=== PATIENT | female | born 1960 | race Caucasian/White ===

== ENCOUNTER → 2023-08-06 10:47 | Outpatient (REF) | payer OTHER, SELFPAY ==
[2023-08-06 12:13] LABS: % Basophils 0.6 % (0-2); % Eosinophils 1.5 % (0-6); % Immature Granulocytes 0.6 % (0-0.5); % Lymphocytes 23.1 % (20.5-51.1); % Monocytes 7.4 % (1.7-9.3); % Neutrophils 66.8 % (42.2-75.2); Absolute Basophils 0.1 10^3/uL (0-0.2); Absolute Eosinophils 0.1 10^3/uL (0-0.7); Absolute Immature Granulocytes 0.1 10^3/uL (0-0.05); Absolute Monocytes 0.7 10^3/uL (0.1-0.6); Absolute Neutrophils 5.9 10^3/uL (1.4-6.5); Hematocrit 44.1 % (37.0-47.0); Hemoglobin 14.6 g/dL (12.0-16.0); Mean Corp Hgb Conc. 33.1 g/dL (33.0-37.0); Mean Corpuscular Hgb 29.4 pg (27.0-31.0); Mean Corpuscular Volume 88.7 fL (81.0-99.0); Mean Platelet Volume 9.9 fL (7.4-10.4); Nucleated Red Blood Cells % 0 %; Platelet Count 374 10^3/uL (130-400); Red Blood Cell Count 4.97 10^6/uL (4.20-5.40); Red Cell Dist. Width 12.8 % (11.5-14.5); White Blood Cell Count 8.8 10^3/uL (4.8-10.8)
[2023-08-06 12:53] LABS: ALT (SGPT) 48 U/L (0-35); AST (SGOT) 41 U/L (14-36); Albumin 4.8 g/dl (3.5-5.0); Alkaline Phosphatase 67 U/L (38-126); Blood Urea Nitrogen 21 mg/dl (7-17); Calcium 10.5 mg/dl (8.4-10.2); Carbon Dioxide 31 mmol/L (22-30); Chloride 97 mmol/L (98-107); Glucose 96 mg/dl (70-99); HDL Cholesterol 68 mg/dl; LDL Cholesterol, Calculated 174 mg/dl; Potassium 3.4 mmol/L (3.5-5.1); Sodium 140 mmol/L (135-145); Total Cholesterol 273 mg/dl (50-199); Total Protein 8.1 g/dl (6.3-8.2); Triglyceride 156 mg/dl (10-149); Very Low Density Lipoprotein 31 mg/dl (0-30); eGFR 56.81
[2023-08-06 13:08] LABS: TSH 1.33 uIU/ml (0.47-4.68)
[2023-08-06 14:33] LABS: Glycohemoglobin (HgbA1c) 5.5 % (4.0-5.6)
[2023-08-06 15:57] LABS: Lyme Antibody Screen, EIA Negative (Negative)
== END ==
LOC: REG 10:47
PROVIDERS: ATTENDING PHYSICIAN Internal Medicine
DX: Z00.00 Encounter for general adult medical examination without abnormal findings (principal); M25.50 Pain in unspecified joint
CPT/HCPCS: 36415; 80053; 80061; 83036; 84443; 85025; 86618

== ENCOUNTER 2023-11-25 18:12 | Emergency (ER) | payer OTHER, SELFPAY ==
[2023-11-25 18:14] VITALS: BP 184/120
[2023-11-25 18:35] LABS: % Basophils 0.5 % (0-2); % Eosinophils 1.1 % (0-6); % Immature Granulocytes 0.5 % (0-0.5); % Lymphocytes 19.6 % (20.5-51.1); % Monocytes 5.5 % (1.7-9.3); % Neutrophils 72.8 % (42.2-75.2); Absolute Basophils 0.1 10^3/uL (0-0.2); Absolute Eosinophils 0.2 10^3/uL (0-0.7); Absolute Immature Granulocytes 0.1 10^3/uL (0-0.05); Absolute Lymphocytes 2.6 10^3/uL (1.2-3.4); Absolute Monocytes 0.7 10^3/uL (0.1-0.6); Absolute Neutrophils 9.6 10^3/uL (1.4-6.5); Hemoglobin 14.1 g/dL (12.0-16.0); Mean Corp Hgb Conc. 34.4 g/dL (33.0-37.0); Mean Corpuscular Hgb 29.1 pg (27.0-31.0); Mean Corpuscular Volume 84.7 fL (81.0-99.0); Mean Platelet Volume 9.6 fL (7.4-10.4); Nucleated Red Blood Cells % 0 %; Platelet Count 335 10^3/uL (130-400); Red Blood Cell Count 4.84 10^6/uL (4.20-5.40); Red Cell Dist. Width 12.9 % (11.5-14.5); White Blood Cell Count 13.2 10^3/uL (4.8-10.8)
[2023-11-25 18:44] LABS: Urine Albumin Trace (Neg - Trace); Urine Bilirubin Negative (Negative); Urine Character Slightly Cloudy (Clear); Urine Color Yellow; Urine Glucose Negative (Negative); Urine Ketone Negative (Negative); Urine Leukocyte 2+ (Negative); Urine Nitrite Negative (Negative); Urine Occult Blood 4+ (Negative); Urine Urobilinogen Negative (Neg - 1+)
[2023-11-25 18:51] LABS: ALT (SGPT) 41 U/L (0-35); AST (SGOT) 35 U/L (14-36); Albumin 4.8 g/dl (3.5-5.0); Alkaline Phosphatase 71 U/L (38-126); Blood Urea Nitrogen 26 mg/dl (7-17); Calcium 10.5 mg/dl (8.4-10.2); Carbon Dioxide 31 mmol/L (22-30); Chloride 94 mmol/L (98-107); Glucose 122 mg/dl (70-99); Potassium 3.2 mmol/L (3.5-5.1); Sodium 139 mmol/L (135-145); Total Bilirubin 0.8 mg/dl (0.2-1.3); Total Protein 7.8 g/dl (6.3-8.2); Urine Bacteria Few (Negative); Urine White Cell 70-80 /HPF (0-5); eGFR > 60.00
[2023-11-25 19:17] LABS: Lactic Acid 1.1 mmol/L (0.7-2.0)
[2023-11-25 19:48] VITALS: BMI 37.4
[2023-11-25 19:51] VITALS: BP 141/89
--- NOTE | 2023-11-25 19:57 | ED.GENMED ---
History of Present Illness
General
Chief Complaint: Urinary Symptoms
Time Seen by Provider: 11/25/23 19:57
History of Present Illness
History of Present Illness:
HPI: Patient presents due to concerns of UTI. Earlier in the day she had a bout of diarrhea. Shortly thereafter, she had severe burning with urination. She then developed some low back discomfort bilaterally. She is a nurse at a school locally.
She came in here and she was very concerned because her had severe UTI/sepsis and was on dialysis.
EXAM:
GENERAL: Well appearing in no distress
HEENT: Moist oral mucosa
CARDIOVASCULAR: No murmurs, normal heart rate, regular rhythm, No chest wall tenderness
PULMONARY: No respiratory distress, breath sounds are clear and equal
ABDOMEN: Soft with no peritoneal signs, no tenderness
BACK: No CVA tenderness
NEUROLOGIC: Excellent strength all extremities, no coordination deficits
PSYCHIATRIC: Appropriate mental status, normal insight and judgement
EXTREMITIES: Nontender, no edema, moves all extremities equally
SKIN: No rash, no lesions
TIME OF INITIAL ENCOUNTER: 8 PM
NUMBER AND COMPLEXITY OF PROBLEMS ADDRESSED AT THE ENCOUNTER
� Chronic conditions affecting care: High blood pressure, sleep apnea on CPAP
� Acute Exacerbation and/or Progression of Chronic Illness: This is an acute problem
� Differential Diagnosis includes: UTI, pyelonephritis, sepsis, bacteremia
AMOUNT AND/OR COMPLEXITY OF DATA TO BE REVIEWED AND ANALYZED
� I performed an independent evaluation of and my interpretation is:
EKG:
CT:
X-rays:
Laboratory Studies: White count 13.2, potassium 3.2, bicarb 31, urinalysis shows 70-80 white cells per high-power field and 2+ leukocyte esterase along with 4+ blood, lactic 1.1
Other:
� Review of other/old records: I reviewed records, the patient had endoscopy in 2022 after sleeve gastroplasty
� Clinical information was obtained by an independent historian: None needed
� Prescriptions/Medications Considered but not given:
� Further testing considered but not performed:
RISK OF COMPLICATIONS AND/OR MORBIDITY OR MORTALITY OF PATIENT MANAGEMENT
� Social determinants of health affecting care: Lives at home, works as a school nurse
� Discussion with other providers:
� Escalation of care including admission/observation vs risk of discharge considered: The patient was borderline tachycardic and borderline febrile upon arrival. She was given IV fluids and Tylenol. We also gave IV antibiotics
for urinary tract infection. On reassessment, heart rate is now down to the 80s, she feels improved. Lactic is reassuring.
Past History
Past History
ED Past Medical History: HTN (Takes valsartan with bumetanide) and Other
ED Past Surgical History: Orthopedic
Social History
Tobacco: Non-smoker
Alcohol: Occasional
Drug: None
Personal:
Living: with family
Employment: Employed (School nurse)
Phy Exam
Physical Exam
Physical Exam:
See HPI
Sepsis
Sepsis Screening
Sepsis Assessment: Sepsis Ruled Out
Sepsis Screen
Sepsis Screen: Sepsis Ruled Out
Date: 11/25/23
Time: 22:46
Course
Orders/Labs/Results
Orders:
Orders
11/25/23 18:24
Complete Blood Count/With Diff Urgent
Comprehensive Metabolic Panel Urgent
Lactic Acid Urgent
Urinalysis Reflex To Culture Urgent
Date Specimen was Collected: 11/25/23
Time Specimen was Collected: 18:13
Urine Microscopic Reflex Cult Urgent
Urine Culture Urgent
TRISH Source: U
Specimen Description:
Date Specimen was Collected: 11/25/23
Time Specimen was Collected: 18:13
11/25/23 20:07
0.9% Sodium Chloride 1000 ml [Nss] 1,000 ml IV BOLUS
Acetaminophen [Tylenol] 1,000 mg PO NOW STA
CefTRIAXone [Rocephin] 1,000 mg IV NOW STA
11/25/23 20:15
Potassium Chloride Powder [Klor-Con] 40 meq PO NOW STA
11/25/23 20:34
Blood Culture Urgent
TRISH Source: Blood/Venous
Specimen Description:
Blood Culture Urgent
TRISH Source: Blood/Venous
Specimen Description:
Abnormal Lab Results
11/25/23
18:24
WBC 13.2 H 10^3/uL
(4.8-10.8)
Abs Immat Gran (auto) 0.1 H 10^3/uL
(0-0.05)
Absolute Neuts (auto) 9.6 H 10^3/uL
(1.4-6.5)
Absolute Monos (auto) 0.7 H 10^3/uL
(0.1-0.6)
Lymphocytes % 19.6 L %
(20.5-51.1)
Potassium 3.2 L mmol/L
(3.5-5.1)
Chloride 94 L mmol/L
(98-107)
Carbon Dioxide 31 H mmol/L
(22-30)
BUN 26 H mg/dl
(7-17)
Glucose 122 H mg/dl
(70-99)
Calcium 10.5 H mg/dl
(8.4-10.2)
ALT 41 H U/L
(0-35)
Ur Occult Blood Reflex 4+ A
(Negative)
Leukocyte Esterase Rfl 2+ A
(Negative)
Urine RBC 7-10 A /HPF
(0-2)
Urine WBC (Reflex) 70-80 A /HPF
(0-5)
Urine Bacteria (Reflex) Few A
(Negative)
11/25/23 18:24
11/25/23 18:24
Vital Signs
Pulse: 84
Initial and Last Documented VS:
Initial Vital Signs
Temp Pulse Resp BP Pulse Ox
100.7 F H 118 20 184/120 99
11/25/23 18:14 11/25/23 18:14 11/25/23 18:14 11/25/23 18:14 11/25/23 18:14
Last Documented Vital Signs
Temp Pulse Resp BP Pulse Ox
98.5 F 86 18 137/79 99
11/25/23 21:53 11/25/23 21:53 11/25/23 21:53 11/25/23 21:53 11/25/23 21:53
*Critical Care Note
Total Time (30-74mins, 75-104mins- exclusive of procedures): Not Applicable
ED Attending Note
-
Portions of this chart may have been created with voice recognition software.� Occasional wrong word or��sound alike� substitutions may have occurred due to the inherent limitations of voice recognition software.
Discharge Plan
Departure
Patient Disposition: Home (Routine Discharge)
Date of Disposition: 11/25/23
Time of Disposition: 21:43
Patient with high blood pressure during this ER visit?: Yes
Discharge Problem:
Urinary tract infection
Instructions: Urinary Tract Infection, Adult (DC)
Prescriptions:
New
ciprofloxacin HCl 500 mg tablet
500 mg PO BID Qty: 14 0RF
No Action
clonazepam 0.5 MG tablet
0.5 mg PO HS
Rx Instructions:
Patient may take 1 or 2 pills .
bumetanide 1 MG tablet
1 mg PO DAILY
Rx Instructions:
Patient either takes 1 or 2 mg.
valsartan [Diovan] 160 MG tablet
160 mg PO DAILY
Magnesium
1 tab PO HS
tramadol 50 mg tablet
50 mg PO BID PRN (Reason: Moderate Pain) Qty: 10 0RF
potassium chloride [K-Dur] 20 mEq Tablet,Er Particles/Crystals
20 meq PO DAILY
hydrochlorothiazide 12.5 mg Tablet
12.5 mg PO DAILY
pantoprazole [Protonix] 20 mg Tablet,Delayed Release (Dr/Ec)
20 mg PO DAILY
loratadine [Claritin] 10 mg Tablet
10 mg PO DAILY PRN (Reason: allergies)
Referrals:
Perla Landry MD [Family Provider] -
Activity Restrictions/Additional Instructions:
Your white count is elevated 13.2 and your initial temperature was borderline elevated 100.5. Your heart rate was also above 100 upon arrival. After fluids and Tylenol, your heart rate has improved down to 84. Your lactic acid was normal. We
gave a dose of Rocephin. I am sending a prescription for Cipro to your pharmacy. We also replaced a low potassium level.
Interventions
Interventions:
*Risk Screen - Suicide Last Done: 11/25/23 18:13
*General Assessment Last Done: 11/25/23 18:14
*Neglect/Abuse Screening Last Done: 11/25/23 19:52
*Nursing Disposition Last Done: 11/25/23 21:54
ED-Female Genitourinary Assessment Last Done: 11/25/23 19:52
Discharge Date and Time
Discharge Date/Time: 11/25/23 21:55
Print Language: SYRIAC
[2023-11-25] MEDS: TYLENOL 1000 MG PO (20:28)
[2023-11-25] MEDS: KLOR-CON 40 MEQ PO (20:28)
[2023-11-25] MEDS: ROCEPHIN 1000 MG IV (20:28)
[2023-11-25] MEDS: NSS 1000 IV (20:28)
[2023-11-25 21:53] VITALS: BP 137/79
== END 2023-11-25 21:55 | disposition home or self-care (01) ==
LOC: EMR 18:12
PROVIDERS: Emergency Medicine; Student in an Organized Health Care Education/Training Program; EMERGENCY PHYSICIAN Emergency Medicine; FAMILY PHYSICIAN Internal Medicine
DX: N39.0 Urinary tract infection, site not specified (principal); I10 Essential (primary) hypertension; Z79.899 Other long term (current) drug therapy
CPT/HCPCS: 96374; 96361; 99284; 80053; 81003; 81015; 83605; 85025; 87040; 87077; 87086; 87186; 96375

== ENCOUNTER → 2024-02-17 11:23 | Outpatient (REF) | payer OTHER, SELFPAY | LOC: RAD 11:23 | PROVIDERS: ATTENDING PHYSICIAN Internal Medicine | DX: Z78.0 Asymptomatic menopausal state (principal) | CPT/HCPCS: 77080 ==

== ENCOUNTER → 2024-03-11 11:14 | Outpatient (REF) | payer OTHER, SELFPAY ==
[2024-03-11 12:53] LABS: FSH 36.8 mIU/ml
[2024-03-11 13:07] LABS: TSH Reflex To Free T4 0.63 uIU/ml (0.47-4.68)
[2024-03-11 13:08] LABS: Estradiol 30.6 pg/ml
== END ==
LOC: REG 11:14
PROVIDERS: ATTENDING PHYSICIAN Nurse Practitioner Family
DX: N95.8 Other specified menopausal and perimenopausal disorders (principal)
CPT/HCPCS: 36415; 82670; 83001; 83002; 84443

== ENCOUNTER → 2024-03-23 08:04 | Outpatient (REF) | payer OTHER, SELFPAY | LOC: HWRAD 08:04 | PROVIDERS: ATTENDING PHYSICIAN Nurse Practitioner Family; FAMILY PHYSICIAN Internal Medicine | DX: Z01.419 Encounter for gynecological examination (general) (routine) without abnormal findings (principal) | CPT/HCPCS: 76700; 76830; 76856 ==

== ENCOUNTER → 2024-03-25 13:27 | Outpatient (REF) | payer OTHER, SELFPAY | LOC: WDC 13:27 | PROVIDERS: ATTENDING PHYSICIAN Nurse Practitioner Family; FAMILY PHYSICIAN Internal Medicine | DX: Z12.31 Encounter for screening mammogram for malignant neoplasm of breast (principal) | CPT/HCPCS: 77063; 77067 ==

== ENCOUNTER 2024-06-24 16:00 | Emergency (ER) | payer OTHER, SELFPAY ==
[2024-06-24 16:20] VITALS: BP 162/100
[2024-06-24 16:45] LABS: % Basophils 0.4 % (0-2); % Eosinophils 3.4 % (0-6); % Immature Granulocytes 0.6 % (0-0.5); % Lymphocytes 27.8 % (20.5-51.1); % Monocytes 5.9 % (1.7-9.3); % Neutrophils 61.9 % (42.2-75.2); Absolute Eosinophils 0.3 10^3/uL (0-0.7); Absolute Immature Granulocytes 0.1 10^3/uL (0-0.05); Absolute Lymphocytes 2.5 10^3/uL (1.2-3.4); Absolute Monocytes 0.5 10^3/uL (0.1-0.6); Absolute Neutrophils 5.5 10^3/uL (1.4-6.5); Hematocrit 38.8 % (37.0-47.0); Hemoglobin 12.8 g/dL (12.0-16.0); Mean Corpuscular Hgb 29.7 pg (27.0-31.0); Mean Platelet Volume 8.9 fL (7.4-10.4); Nucleated Red Blood Cells % 0 %; Platelet Count 375 10^3/uL (130-400); Red Blood Cell Count 4.31 10^6/uL (4.20-5.40); Red Cell Dist. Width 12.8 % (11.5-14.5); White Blood Cell Count 8.9 10^3/uL (4.8-10.8)
[2024-06-24 17:03] LABS: ALT (SGPT) 24 U/L (0-35); AST (SGOT) 25 U/L (14-36); Albumin 4.2 g/dl (3.5-5.0); Alkaline Phosphatase 52 U/L (38-126); Blood Urea Nitrogen 20 mg/dl (7-17); Calcium 10.4 mg/dl (8.4-10.2); Carbon Dioxide 28 mmol/L (22-30); Chloride 104 mmol/L (98-107); Glucose 83 mg/dl (70-99); Lipase 143 U/L (23-300); Potassium 4.1 mmol/L (3.5-5.1); Sodium 140 mmol/L (135-145); Total Bilirubin 0.7 mg/dl (0.2-1.3); Total Protein 7.7 g/dl (6.3-8.2); eGFR > 60.00
--- NOTE | 2024-06-24 19:08 | ED.GENMED ---
History of Present Illness
General
Chief Complaint: Abdominal Pain
Source: patient
Exam Limitations: none
Time Seen by Provider: 06/24/24 17:48
Nursing documentation reviewed up to this point in time: agreed with
History of Present Illness
History of Present Illness:
64 y/o F with h/o htn, GERD
says that she had mid/upper thoracic b/l back pain startin 06/09
worse with position
having trouble moving
stayed in bed a few days and got better
but then noticed RUQ pain to back and shoulder with heavy meals
she had incidental finding of cholelithiasis on outpatient US of her abdomen
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
she has had some nausea and didn't eat all day but no vomiting
last night she woke up in the night with upper back/neck pain and shoulder pain and has had RUQ piain all day that is better now but still present, worse with movement
she has pain with deep breathing but doesn't feel sob
no h/o PE/DVT
n vomiting, diarrhea, dysuria, hematuria
Past History
Past History
ED Past Medical History: HTN (Takes valsartan with bumetanide) and Other
ED Past Surgical History: Orthopedic
Social History
Tobacco: Non-smoker
Alcohol: Occasional
Drug: None
Personal:
Living: with family
Employment: Employed (School nurse)
Review of Systems
Review of Systems
Allergies reviewed?: Yes
All Other Systems: Not applicable
Phy Exam
Physical Exam
Physical Exam:
GENERAL: Alert , in no apparent distress
HEAD: NCAT
NECK: no midline tenderness, active ROM intact, no paraspinal muscle tenderness;
no neck tendenress
EYE: pupils equal and reactive, EOMs intact.
ENT: o/p clr, mmm. no hemotympanum
CARDIAC: Regular rate and rhythm, no edema
LUNGS: Clear breath sounds bilaterally, no acute respiratory distress, no wheezes/rales/rhonchi
back: notnender, pain with movement/abdomen and back
ABDOMEN: Soft, tender RUQ and RLQ, R flank
pain with movement
back: no midline e
NEUROLOGICAL: Alert and oriented, no focal neuro deficits, CN intact, 5/5 strength, sensation intact
SKIN: Warm and dry,
MUSCULOSKELETAL: No edema, well perfused. moving extremities
PSYCH: Normal and appropriate interaction.
Course
Orders/Labs/Results
Orders:
Orders
06/24/24 16:06
EKG [Electrocardiogram (*1)] Urgent
Reason for Study: Abdominal Pain
EKG- Treatment ONCE
06/24/24 16:35
Complete Blood Count/With Diff Urgent
Comprehensive Metabolic Panel Urgent
Lipase Urgent
06/24/24 18:05
US Abdomen Complete/Upper Urgent
Comment:
Reason For Exam: RQU pain with eating, h/o gallstones
06/24/24 19:02
CT Chest/abd/pelvis Angio W/wo Urgent
Comment:
Reason For Exam: severe upper back pain, abd pain, hypertension
HYDROmorphone [Dilaudid] 1 mg IV NOW STA
06/24/24 20:28
Troponin I Urgent
Urinalysis Reflex To Culture Urgent
Date Specimen was Collected: 06/24/24
Time Specimen was Collected: 19:50
Urine Microscopic Reflex Cult Urgent
Urine Culture Urgent
TRISH Source: U
Specimen Description:
Date Specimen was Collected: 06/24/24
Time Specimen was Collected: 19:50
06/24/24 22:23
Ketorolac [Toradol] 30 mg IV NOW STA
MetroNIDAZOLE [Flagyl] 500 mg PO NOW STA
06/24/24 22:23
Ciprofloxacin HCl [Cipro] 500 mg PO NOW STA
Abnormal Lab Results
06/24/24 06/24/24
16:35 20:28
Abs Immat Gran (auto) 0.1 H 10^3/uL
(0-0.05)
Immature Gran % 0.6 H %
(0-0.5)
BUN 20 H mg/dl
(7-17)
Calcium 10.4 H mg/dl
(8.4-10.2)
Ur Occult Blood Reflex 1+ A
(Negative)
Leukocyte Esterase Rfl 2+ A
(Negative)
Urine WBC (Reflex) 26-30 A /HPF
(0-5)
Urine Bacteria (Reflex) Moderate A
(Negative)
Urine Albumin (Reflex) 1+ A
(Neg - Trace)
06/24/24 16:35
06/24/24 16:35
Vital Signs
Initial and Last Documented VS:
Initial Vital Signs
Temp Pulse Resp BP Pulse Ox
37.4 C 84 18 162/100 99
06/24/24 16:20 06/24/24 16:20 06/24/24 16:20 06/24/24 16:20 06/24/24 16:20
Last Documented Vital Signs
Temp Pulse Resp BP Pulse Ox
37.2 C 84 20 146/78 98
06/24/24 19:55 06/24/24 21:07 06/24/24 21:07 06/24/24 21:07 06/24/24 21:07
MDM/Problems Addressed
Differential Diagnosis Includes:
choelithaisis, cholecystits, acs, aortic dissection, PE, colitis;
MDM/Problems Addressed:
64 y/o F with h/o HTN, anxiety, GERD
upper back pain 2 weeks ago atraumatic
but worse with movement
seemed to get better then pain coming back with eating, seems to be RUQ and radiating to shoulder and back
she woke up in the night with upper back/neck pain and nausea
she has ahd some pain with breathing but no SOB, no PE rf
pt is hypertensive, pain is with movement and breathig
she has tendernses RUQ r flank, right lower abd
appreciate normal wbc, normal lfts, lipase
US shows cholelithiasis but no cholecystitis
however, concerne about degree of tendenress in the abdomen, and the upper back pain with htn
d/w ed attending
will CT.
2229 -
ct findings d/w pt
she does have mild acute divertic descending colong
but this isn't really located where her pain is
primarly mid back pain - she has discogenic disease so i do believe pt has more MSK cause for pain
and also symptomatic cholelithaisis but she feels ok pain coppola now and has no sign of cholecystitis and i feel can go home with surgical outpatient consult
ruine is also suspicious, has leuks, wbc, bacteria
will covier with cipro/flagyl
clear liquids 24 hours
advance diet low fat
low thresthold for returning
*Critical Care Note
Total Time (30-74mins, 75-104mins- exclusive of procedures): Not Applicable
ED Attending Note
-
Portions of this chart may have been created with voice recognition software.� Occasional wrong word or��sound alike� substitutions may have occurred due to the inherent limitations of voice recognition software.
Discharge Plan
Departure
Patient Disposition: Home (Routine Discharge)
Date of Disposition: 06/24/24
Time of Disposition: 22:25
Patient with high blood pressure during this ER visit?: No
Condition: Fair
Covid-19: Not Applicable
Discharge Problem:
Discogenic thoracic pain, Cholelithiasis, Diverticulitis, Constipation
Instructions: Gallstones (DC), Diverticulitis - Discharge instructions
Prescriptions:
New
ciprofloxacin HCl [Cipro] 500 mg tablet
500 mg PO BID Qty: 14 0RF
metronidazole 500 mg tablet
500 mg PO Q8H 7 Days Qty: 21 0RF
No Action
clonazepam 0.5 MG tablet
0.5 mg PO HS
Rx Instructions:
Patient may take 1 or 2 pills .
bumetanide 1 MG tablet
1 mg PO DAILY
Rx Instructions:
Patient either takes 1 or 2 mg.
valsartan [Diovan] 160 MG tablet
160 mg PO DAILY
Magnesium
1 tab PO HS
potassium chloride [K-Dur] 20 mEq Tablet,Er Particles/Crystals
20 meq PO DAILY
hydrochlorothiazide 12.5 mg Tablet
12.5 mg PO DAILY
loratadine [Claritin] 10 mg Tablet
10 mg PO DAILY PRN (Reason: allergies)
Referrals:
Perla Landry MD [Family Provider] -
Franky Og MD [Active] - Follow up in 2-3 days
Activity Restrictions/Additional Instructions:
YOUR LABS ARE REASSURING
YOU DO HAVE GALLSTONES BUT NOS IGN OF GALLBLADDER INFECTION
HAVE EVALUATION BY OUTPATIENT GEN SURGERY FOR REMOVAL OF YOUR GALLBLADDER
EAT LOW FAT DIET
BUT FOR NOW YOU ALSO HAVE A FEW OTHER THINGS GOING ON:
MILD DIVERTICULITIS AND MAYBE A UTI
WELL BACK PAIN PROBALBY FROM YOUR DISC DISEASE IN YOUR BACK
TRY MOTRIN EVERY 8 HOURS FOR PAIN FOR 2-3 DAYS
DRINK FLUIDS/CLEARS FOR 24 HOURS
YOU WERE CONSIPTATED SO TAKE METAMUCIL DAILY
TAKE CIPRO TWICE AD AY FOR 7 DAYS
FLAGYL 3 TIMES ADAY FOR 7 DAYS
RETURN IF: FEVER, WORSE PAIN, VOMITING, BLOODY DIARRHEA, ETC
Interventions
Interventions:
*Risk Screen - Suicide Last Done: 06/24/24 16:20
*General Assessment Last Done: 06/24/24 16:20
*Neglect/Abuse Screening Last Done: 06/24/24 16:20
*ED- Fall Risk Assessment Last Done: 06/24/24 19:55
*ED COVID-19 Vaccine History Last Done: 06/24/24 16:20
FP-Rnvace-Hegitbyzql Assessment Last Done: 06/24/24 19:55
Discharge Date and Time
Print Language: URDU
[2024-06-24 19:51] VITALS: BMI 34.5
[2024-06-24 19:55] VITALS: BP 139/77
[2024-06-24] MEDS: DILAUDID 1 MG IV (20:32)
[2024-06-24 20:43] LABS: Urine Albumin 1+ (Neg - Trace); Urine Bilirubin Negative (Negative); Urine Character Clear (Clear); Urine Color Yellow; Urine Glucose Negative (Negative); Urine Ketone Negative (Negative); Urine Leukocyte 2+ (Negative); Urine Nitrite Negative (Negative); Urine Occult Blood 1+ (Negative); Urine Urobilinogen Negative (Neg - 1+)
[2024-06-24 20:53] LABS: Urine Red Blood Cell 0-2 /HPF (0-2)
[2024-06-24 20:54] LABS: Urine Bacteria Moderate (Negative); Urine White Cell 26-30 /HPF (0-5)
[2024-06-24 21:07] VITALS: BP 146/78
[2024-06-24 21:25] LABS: Troponin I < 0.012 ng/ml
[2024-06-24] MEDS: TORADOL 30 MG IV (22:32)
[2024-06-24] MEDS: FLAGYL 500 MG PO (22:33)
[2024-06-24] MEDS: CIPRO 500 MG PO (22:33)
== END 2024-06-24 22:56 | disposition home or self-care (01) ==
LOC: EMR 16:00
PROVIDERS: Emergency Medicine; Physician Assistant; EMERGENCY PHYSICIAN Emergency Medicine; FAMILY PHYSICIAN Internal Medicine
DX: K80.20 Calculus of gallbladder without cholecystitis without obstruction (principal); K57.32 Diverticulitis of large intestine without perforation or abscess without bleeding; K59.00 Constipation, unspecified; I10 Essential (primary) hypertension; K21.9 Gastro-esophageal reflux disease without esophagitis; F41.9 Anxiety disorder, unspecified
CPT/HCPCS: 99284; 96374; 96375; 71275; 74174; 76700; 80053; 81003; 81015; 83690; 84484; 85025; 87086; 93005; Q9967

== ENCOUNTER → 2024-07-20 14:41 | Outpatient (REF) | payer OTHER, SELFPAY ==
[2024-07-20 16:17] LABS: Total CK 157 U/L (30-135)
[2024-07-20 16:39] LABS: CKMB 2.4 ng/ml (0.0-3.4)
== END ==
LOC: REG 14:41
PROVIDERS: ATTENDING PHYSICIAN Internal Medicine Cardiovascular Disease; FAMILY PHYSICIAN Internal Medicine
DX: E78.01 Familial hypercholesterolemia (principal)
CPT/HCPCS: 36415; 82550; 82553

== ENCOUNTER → 2024-08-05 11:31 | Outpatient (REF) | payer OTHER, SELFPAY ==
[2024-08-05 13:02] LABS: % Basophils 0.3 % (0-2); % Eosinophils 2.4 % (0-6); % Immature Granulocytes 0.6 % (0-0.5); % Lymphocytes 26.7 % (20.5-51.1); % Monocytes 8.2 % (1.7-9.3); % Neutrophils 61.8 % (42.2-75.2); Absolute Eosinophils 0.2 10^3/uL (0-0.7); Absolute Lymphocytes 1.9 10^3/uL (1.2-3.4); Absolute Monocytes 0.6 10^3/uL (0.1-0.6); Absolute Neutrophils 4.4 10^3/uL (1.4-6.5); Hemoglobin 13.5 g/dL (12.0-16.0); Mean Corp Hgb Conc. 33.8 g/dL (33.0-37.0); Mean Corpuscular Hgb 29.5 pg (27.0-31.0); Mean Corpuscular Volume 87.3 fL (81.0-99.0); Mean Platelet Volume 9.5 fL (7.4-10.4); Nucleated Red Blood Cells % 0 %; Platelet Count 384 10^3/uL (130-400); Red Blood Cell Count 4.58 10^6/uL (4.20-5.40); Red Cell Dist. Width 13.1 % (11.5-14.5); White Blood Cell Count 7.2 10^3/uL (4.8-10.8)
[2024-08-05 14:25] LABS: ALT (SGPT) 27 U/L (0-35); AST (SGOT) 26 U/L (14-36); Albumin 4.6 g/dl (3.5-5.0); Alkaline Phosphatase 54 U/L (38-126); Blood Urea Nitrogen 21 mg/dl (7-17); Calcium 10.5 mg/dl (8.4-10.2); Carbon Dioxide 28 mmol/L (22-30); Chloride 103 mmol/L (98-107); Glucose 86 mg/dl (70-99); HDL Cholesterol 58 mg/dl; LDL Cholesterol, Calculated 154 mg/dl; Potassium 4.4 mmol/L (3.5-5.1); Sodium 139 mmol/L (135-145); Total Bilirubin 0.7 mg/dl (0.2-1.3); Total Cholesterol 231 mg/dl (50-199); Total Protein 7.8 g/dl (6.3-8.2); Triglyceride 97 mg/dl (10-149); Very Low Density Lipoprotein 19 mg/dl (0-30); eGFR > 60.00
[2024-08-05 14:33] LABS: Glycohemoglobin (HgbA1c) 4.9 % (4.0-5.6)
[2024-08-05 14:48] LABS: TSH 1.38 uIU/ml (0.47-4.68)
[2024-08-05 16:23] LABS: Creatine Phosphokinase 175 U/L (30-135)
== END ==
LOC: REG 11:31
PROVIDERS: ATTENDING PHYSICIAN Internal Medicine; REFERRING PHYSICIAN Internal Medicine Cardiovascular Disease
DX: Z00.00 Encounter for general adult medical examination without abnormal findings (principal); M25.50 Pain in unspecified joint; R00.2 Palpitations
CPT/HCPCS: 36415; 80053; 80061; 82550; 83036; 84443; 85025; 86618